=== PATIENT | female | born 1970 | race Two or more races ===

== ENCOUNTER 2018-12-20 00:33 | Emergency (ER) | payer BC ==
[~2018-12-20] VITALS: Ht 157.5 cm; Wt 72.1 kg
[2018-12-20 01:44] VITALS: BP 126/86
[2018-12-20 07:40] LABS: Basophils # (auto) 0.1 uL; Eosinophils # (auto) 0 uL; Eosinophils % (auto) 0.1 % (0.0-7.0); Monocytes # (auto) 0.4 uL; Neutrophils # (auto) 8.7 uL
[2018-12-20 07:42] LABS: Basophils % (auto) 0.5 % (0.0-2.0); Hematocrit 37.8 % (36.0-46.0); Hemoglobin 12.1 g/dL (12.2-16.2); Lymphocytes # (auto) 1.5 uL; Lymphocytes % (auto) 13.8 % (10.0-50.0); Mean Corpuscular Hemoglobin 22.7 pg (28.0-32.0); Mean Corpuscular Volume 70.8 fL (80.0-100.0); Monocytes % (auto) 3.6 % (0.0-12.0); Nucleated Red Blood Cells % 0.1 %; Platelet Count (auto) 180 10^3/uL (140-450); Red Blood Cells 5.34 10^6/uL (4.0-5.20); Red Cell Distribution Width 15.1 % (11.8-14.3); White Blood Cell 10.7 10^3/uL (4.4-10.8)
[2018-12-20 08:01] LABS: Albumin 4.3 g/dL (3.4-5.0); Calcium 9.9 mg/dL (8.5-10.1); Potassium 4.4 mmol/L (3.5-5.1)
[2018-12-20 08:04] LABS: Bilirubin, Total 0.8 mg/dL (0.2-1.0); Total Protein 8.4 g/dL (6.4-8.2)
== END 2018-12-20 08:54 | disposition left against medical advice (07) ==
LOC: ER 00:33
DX: R10.9 Unspecified abdominal pain (principal); Z53.21 Procedure and treatment not carried out due to patient leaving prior to being seen by health care provider
CPT/HCPCS: 36415; 80053; 83690; 85025